=== PATIENT | female | born 1970 | race Caucasian/White ===

== ENCOUNTER 2018-11-06 18:57 | Emergency (ER) | payer MEDICAID ==
[~2018-11-06] VITALS: Ht 162.6 cm; Wt 63.5 kg
[2018-11-06] MEDS ORDERED: NKM (19:04)
--- NOTE | 2018-11-06 19:15 | NUR ---
ED Nurse Note: walked in d/t MUSCULAR chest pain 11/25, radiating to Rt side of back, started 0900 yesterday,AO4. NAD. VSS. EKG 12 LEAD NSR.
[2018-11-06 19:16] VITALS: BP 114/79
[2018-11-06] MEDS ORDERED: Methocarbamol 750mg tab ORAL ONE (19:30)
--- NOTE | 2018-11-06 19:30 | NUR ---
ED Nurse Note: IMAGING AT BEDSIDE
[2018-11-06] MEDS ORDERED: IBUPROFEN600 MG ORAL (19:59)
[2018-11-06] MEDS ORDERED: ROBAXIN-750750 MG PO (19:59)
[2018-11-06 20:05] VITALS: BP 114/79
--- NOTE | 2018-11-06 20:05 | NUR ---
ER DISCHARGE NOTE: Patient is cleared to be discharged per ERMD, pt is aox4, on room air, with stable vital signs. accompanied by family member. pt was given dc and prescription instructions, pt was able to verbalize understanding, pt id band removed. pt is able to ambulate with steady gait. pt took all belongings.
--- NOTE | 2018-11-06 20:35 | Emergency Room Report ---
History of Present Illness General Chief Complaint: Chest Pain Source: Patient Present Illness HPI 47-year-old presents ED for evaluation. Complaining of chest pain. Right- sided underneath the right breast, radiating to the back. Worse with twisting and bending. States she woke up with the pain yesterday. Notes pain with deep breaths. Dull, 8 out of 10. Denies shortness of breath. 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 Denies history of hypertension. Denies smoking or drug use. No other aggravating or relieving factors. Denies any other associated symptoms Allergies: Uncoded Allergies: LIDOCANE (Allergy, Unknown, 11/06/18) TETRACYCLIN (Allergy, Unknown, 11/06/18) Patient History Past Medical History: none Past Surgical History: none Pertinent Family History: none Social History: Denies: smoking, alcohol use, drug use Last Menstrual Period: 2016 Now: No Immunizations: UTD Reviewed Nursing Documentation: PMH: Agreed; PSxH: Agreed Nursing Documentation-PMH Past Medical History: No Stated History Review of Systems All Other Systems: negative except mentioned in HPI Physical Exam Vital Signs Date Time Temp Pulse Resp B/P (MAP) Pulse Ox O2 Delivery O2 Flow Rate FiO2 11/06/18 19:00 98.1 82 17 114/79 (91) 97 Room Air Sp02 EP Interpretation: reviewed, normal General Appearance: no apparent distress, alert, GCS 15, non-toxic Head: normocephalic Eyes: bilateral eye normal inspection, bilateral eye PERRL ENT: hearing grossly normal, normal pharynx, no angioedema, normal voice Neck: full range of motion, supple/symm/no masses Respiratory: lungs clear, normal breath sounds, speaking full sentences, other - R sided anterior chest wall pain. reproducible Cardiovascular #1: regular rate, rhythm, no edema Gastrointestinal: normal inspection Rectal: deferred Genitourinary: no CVA tenderness Musculoskeletal: normal inspection Neurologic: alert, oriented x3, responsive, motor strength/tone normal, sensory intact, speech normal Psychiatric: normal inspection Skin: no rash Lymphatic: normal inspection Medical Decision Making Diagnostic Impression: Primary Impression: Strain of chest wall Qualified Codes: S29.011A - Strain of muscle and tendon of front wall of thorax, initial encounter ER Course Hospital Course 47-year-old female presents ED complaining of reproducible chest wall pain Differential diagnoses include: Rib fracture, DC/unstable angina, contusion, muscle strain Clinical course Patient placed on stretcher. After initial history, physical exam reveals female in no acute distress. There is reproducible right-sided anterior rib pain. No crepitus or bruising. Lung sounds clear. EKG - NSR, no acute ischemic changes interpreted by me Chest x-ray-no cardiomegaly, no rib fracture, no pneumothorax, no acute process clinical findings consistent with muscle strain/costochondritis. Reassurance given. Pain improved after medication. Patient has no cardiac risk factors. Vitals stable. Safe for discharge for close outpatient follow-up I. I feel this is a highly complex case requiring extensive working including EKG/Rhythm strip, Xray/CT/US, Blood/urine lab work, repeat exams while in ED, and administration of strong opiates/narcotics for pain control, admission to hospital or close patient follow up. Diagnosis - chest wall pain Stable and discharged to home with prescription for Motrin, robaxin. Instructed to followup with PMD. Return to ED if symptoms recur or worsen EKG Diagnostic Results Rate: normal Rhythm: NSR ST Segments: no acute changes ASA given to the pt in ED: No Rhythm Strip Diag. Results EP Interpretation: yes Rhythm: NSR, no PVC's, no ectopy Chest X-Ray Diagnostic Results Chest X-Ray Diagnostic Results : Chest X-Ray Ordered: Yes # of Views/Limited/Complete: 1 View Indication: Chest Pain EP Interpretation: Yes Interpretation: no consolidation, no effusion, no pneumothorax, no acute cardiopulmonary disease Impression: No acute disease Electronically Signed by: Electronically signed by Daljit Melchor MD Last Vital Signs Date Time Temp Pulse Resp B/P (MAP) Pulse Ox O2 Delivery O2 Flow Rate FiO2 11/06/18 20:05 98.1 82 17 114/79 97 Room Air Status: improved Disposition: HOME, SELF-CARE Condition: Stable Scripts Methocarbamol* (ROBAXIN-750*) 750 Mg Tablet 750 MG PO TID, #21 TAB 0 Refills Prov: Daljit Melchor MD 11/06/18 Ibuprofen* (MOTRIN*) 600 Mg Tablet 600 MG ORAL Q8H PRN for For Pain, #30 TAB 0 Refills Prov: Daljit Melchor MD 11/06/18 Referrals: [facility] Departure Forms: Return to Work Return to Work Date: Nov 07, 2018 Work Restrictions: No Heavy Lifting Patient Instructions: Chest Wall Pain, [id number] Daljit Melchor MD Nov 06, 2018 20:35
--- NOTE | 2018-11-07 10:40 | Diagnostic Imaging Report ---
Indication: Chest pain Technique: One view of the chest Comparison: none Findings: Lungs and pleural spaces are clear. Heart size is normal Impression: No acute process
--- NOTE | 2018-11-07 13:57 | Cardiology Report ---
APPROVED REPORT EKG Measurement Heart [id number] Normal sinus rhythm Normal ECG
== END 2018-11-06 20:05 | disposition home or self-care (01) ==
LOC: EMR 19:30
DX: S29.011A Strain of muscle and tendon of front wall of thorax, initial encounter (principal); X50.0XXA Overexertion from strenuous movement or load, initial encounter; Y92.9 Unspecified place or not applicable; Y99.0 Civilian activity done for income or pay; Z88.8 Allergy status to other drugs, medicaments and biological substances
CPT/HCPCS: 71045; 93005; 99283

== ENCOUNTER 2019-02-22 19:08 | Emergency (ER) | payer MEDICAID ==
[~2019-02-22] VITALS: Ht 162.6 cm; Wt 64.9 kg
[~2019-02-22 19:08] MED LIST: IBUPROFEN600 MG ORAL; NKM; ROBAXIN-750750 MG PO
--- NOTE | 2019-02-22 19:19 | NUR ---
ED Nurse Note: pt walked in to ED for C/O rashes on right legs for 3 days. PT was seen at urgent care yesterday and was diagnosed with shingles. per pt, the pain is gettign worse even with the medication she was prescribed. pt is alert x4.
[2019-02-22 19:20] VITALS: BP 118/70
[2019-02-22] MEDS ORDERED: IBUPROFEN600 MG ORAL (19:32)
[2019-02-22] MEDS ORDERED: ACETAMINOPHEN325 M1 ORAL (19:32)
[2019-02-22] MEDS ORDERED: NORCO 5-325 TA1 EACH ORAL (19:32)
--- NOTE | 2019-02-22 19:37 | Emergency Room Report ---
History of Present Illness General Chief Complaint: Skin Rash/Abscess Source: Patient Present Illness [facility] Disclaimer: Please note that this report is being documented using DRAGON technology. This can lead to erroneous entry secondary to incorrect interpretation by the dictating instrument. HPI: 48-year-old female with no reported medical history presents for evaluation of painful rash on the right lower extremity. The patient was first experiencing hyperesthesias and then a vesicular rash broke out on the medial aspect of her right thigh 3 days ago. She was seen at urgent care and diagnosed with shingles. Started on valacyclovir 3 times daily as well as Keflex for possible superinfection. Patient started taking the valacyclovir and antibiotics yesterday. She notes worsening pain and new vesicles appearing. She came in for a second opinion. Denies any changes in her vision , pain in the eye, vesicles on other parts of her body. PMH: Denies PSH: ORIF left lower extremity Allergies: Denies Social Hx: Regular alcohol use, regular tobacco use, denies drug use Allergies: Coded Allergies: LIDOCAINE (Verified Allergy, Unknown, 02/22/19) TETRACYCLINES (Verified Allergy, Unknown, 02/22/19) Patient History Last Menstrual Period: menopause Nursing Documentation-PMH Past Medical History: No Stated History Review of Systems All Other Systems: negative except mentioned in HPI Physical Exam Vital Signs Date Time Temp Pulse Resp B/P (MAP) Pulse Ox O2 Delivery O2 Flow Rate FiO2 02/22/19 19:15 98.4 92 18 115/73 (87) 97 Room Air General: Awake and alert, no acute distress HEENT: NC/AT. EOMI. no vesicles on the face, nose, tympanic membrane or near the orbit. Resp: Normal work of breathing. Skin: There are clear vesicles on erythematous bases over the medial aspect of the right thigh extending over the right knee. No surrounding edema. No raised lesions otherwise, no skin breakdown. Nikolsky negative. MSK: Normal tone and bulk. Moving all extremities. No obvious deformity. Neuro: Awake and alert. Mentating appropriately. Hypersensitive to touch over the right lower extremity particularly over the medial aspect of the thigh Medical Decision Making Diagnostic Impression: Primary Impression: Shingles ER Course 48-year-old female presents for second opinion of a rash initially diagnosed as shingles by urgent care 3 days ago. I believe that the diagnosis correct and the patient does have zoster infection of the right lower extremity likely over the L3 dermatome. She is already taking valacyclovir which she started yesterday as well as antibiotics for possible secondary infection. She is complaining of significant pain was not given any pain medication at urgent care. We will start her on Tylenol, Motrin and prescribe a short course of breakthrough pain medication to use only when needed. She has no evidence of herpes ophthalmicus or Vivi Becerra syndrome. She is otherwise well-appearing and no other complaints at this time. She will be discharged to follow-up as an outpatient. We discussed hand hygiene, barrier precautions and reasons to return to the emergency department for reevaluation. She understands and agrees with this treatment plan will be discharged home. Last Vital Signs Date Time Temp Pulse Resp B/P (MAP) Pulse Ox O2 Delivery O2 Flow Rate FiO2 02/22/19 19:15 98.4 92 18 115/73 (87) 97 Room Air Disposition: HOME, SELF-CARE Condition: Stable Scripts Acetaminophen* (ACETAMINOPHEN 325MG TABLET*) 325 Mg Tablet 650 MG ORAL Q4H PRN for For Pain, #30 TAB Prov: Nehemias Lewis MD 02/22/19 Hydrocodone Bit/Acetaminophen 5-325* (NORCO 5-325*) 1 Each Tablet 1 TAB ORAL Q6H PRN for For Pain, #20 TAB 0 Refills Prov: Nehemias Lewis MD 02/22/19 Ibuprofen* (MOTRIN*) 600 Mg Tablet 600 MG ORAL Q8H PRN for For Pain, #30 TAB 0 Refills Prov: Nehemias Lewis MD 02/22/19 Referrals: [facility]. [facility] Patient Instructions: Shingles Additional Instructions: Continue taking the valacyclovir as prescribed for the full course of treatment. We will start you on Tylenol, Motrin and breakthrough pain medication to use only as needed. Please follow-up with 1 of the clinics listed here in your discharge paperwork for reevaluation within the next week. Return to the emergency department any new or worsening symptoms. Maintain strict hand hygiene and barrier precautions with all those around you especially children and women. Nehemias Lewis MD Feb 22, 2019 19:37
[2019-02-22 19:44] VITALS: BP 119/75
--- NOTE | 2019-02-22 19:44 | NUR ---
ER DISCHARGE NOTE: Patient is cleared to be discharged per ERMD, pt is aox4, on room air, with stable vital signs. pt was given dc instructions, pt was able to verbalize understanding, pt id band removed without complications. pt is able to ambulate with steady gait. pt took all belongings.
== END 2019-02-22 19:44 | disposition home or self-care (01) ==
LOC: EMR 19:22
DX: B02.9 Zoster without complications (principal); Z96.60 Presence of unspecified orthopedic joint implant; Z88.1 Allergy status to other antibiotic agents; Z88.4 Allergy status to anesthetic agent
CPT/HCPCS: 99282

== ENCOUNTER 2019-04-10 18:22 | Emergency (ER) | payer MEDICAID ==
[~2019-04-10] VITALS: Ht 162.6 cm; Wt 63.5 kg
[~2019-04-10 18:22] MED LIST changes: +ACETAMINOPHEN325 M1 ORAL; +NORCO 5-325 TA1 EACH ORAL
[2019-04-10 18:34] VITALS: BP 127/86
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
--- NOTE | 2019-04-10 18:50 | NUR ---
ED Nurse Note: pt refused Toradol due to fear of needle. ERPA made aware.
[2019-04-10] MEDS ORDERED: Ketorolac 30mg Inj IM ONE (19:00)
--- NOTE | 2019-04-10 19:00 | NUR ---
ED Nurse Note: unopened Toradol vial returned to Pyxis, witnessed by YAW Mejia.
--- NOTE | 2019-04-10 19:04 | NUR ---
HAND-OFF: Report given to YAW Jimenez.
--- NOTE | 2019-04-10 19:07 | NUR ---
ELOPEMENT: Patient jumped out of her seat, started behave inappropriate, trowing stuf, saying inappropriate words to the nurses, and left. States, this is not a place when she wants to be.
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
[2019-04-10] MEDS ORDERED: IBUPROFEN600 MG ORAL (21:03)
[2019-04-10] MEDS ORDERED: NORCO 5-325 TA1 EACH ORAL (21:03)
== END 2019-04-10 19:30 | disposition left against medical advice (07) ==
LOC: EMR 19:21
DX: R07.81 Pleurodynia (principal); Z88.8 Allergy status to other drugs, medicaments and biological substances
CPT/HCPCS: 96372; Z7502; 99283

== ENCOUNTER 2019-04-10 19:31 | Emergency (ER) | payer MEDICAID ==
[~2019-04-10] VITALS: Ht 162.6 cm; Wt 63.5 kg
[2019-04-10 19:55] VITALS: BP 124/88
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
[2019-04-10] MEDS ORDERED: HYDROcodone/Acetamin 5/325 tab ORAL ONE (20:00)
--- NOTE | 2019-04-10 20:07 | NUR ---
ED Nurse Note: Patient went down for chest X-ray
--- NOTE | 2019-04-10 20:20 | NUR ---
ED Nurse Note: Patient is back
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
--- NOTE | 2019-04-10 20:56 | Diagnostic Imaging Report ---
EXAM: XR Left Ribs and AP Chest, 3 or More Views CLINICAL HISTORY: CP TECHNIQUE: Frontal and oblique views of the left ribs and frontal view of the chest. COMPARISON: No relevant prior studies available. FINDINGS: Lungs: Unremarkable. No consolidation. Pleural space: Unremarkable. No pneumothorax. Heart: Unremarkable. No cardiomegaly. Mediastinum: Unremarkable. Bones/joints: Unremarkable. No acute fracture. IMPRESSION: No acute fracture.
[2019-04-10] MEDS ORDERED: IBUPROFEN600 MG ORAL (21:03)
[2019-04-10] MEDS ORDERED: NORCO 5-325 TA1 EACH ORAL (21:03)
[2019-04-10 21:19] VITALS: BP 124/88
--- NOTE | 2019-04-10 21:20 | NUR ---
ED Nurse Note: Pt cleared by health care Provider for discharge. DC instructions/prescription was given and explained to pt and verbalized understanding of teachings. All medical deviecs such as ID band removed. Pt is AAO x4, ambulatory and left with all personal belongings.
== END 2019-04-10 21:18 | disposition home or self-care (01) ==
LOC: EMR 20:00
DX: R07.81 Pleurodynia (principal); Z88.8 Allergy status to other drugs, medicaments and biological substances
CPT/HCPCS: 71101; 93005; Z7502; 99283